=== PATIENT | male | born 1985 | race Caucasian/White ===

== ENCOUNTER 2017-09-27 16:47 | Emergency (ER) | payer MEDICAID ==
[2017-09-27 18:14] LABS: AMYLASE - SERUM 52 U/L (25-115); LIPASE 218 U/L (73-393); TROPONIN-I < 0.017 ng/mL (0.000-0.060)
[2017-09-27 18:52] LABS: BASOPHILS 0.6 % (0-2); EOSINOPHILS 1.7 % (0-7); HEMATOCRIT 44.5 % (42.0-54.0); HEMOGLOBIN 14.8 g/dL (13.5-17.5); IMMATURE GRANULOCYTES 0.7 % (0-5); LYMPHOCYTES 23.6 % (15-50); MCH 27.8 pg (26.0-34.0); MCHC 33.3 g/dL (31.0-37.0); MCV 83.5 fL (80.0-100.0); MEAN PLATELET VOLUME 10.2 fL (7.4-10.4); MONOCYTES 5.8 % (2-11); NEUTROPHILS 67.6 % (40-80); PLATELET COUNT 254 10x3/uL (130-400); RBC 5.33 10x6/uL (4.20-6.10); WBC 8.8 10x3/uL (4.8-10.8)
[2017-09-27 19:01] LABS: ALBUMIN 3.9 g/dL (3.4-5.0); ALKALINE PHOSPHATASE 75 U/L (46-116); ALT (SGPT) 223 U/L (10-68); CALC OSMOLALITY 279 mosm/kg (275-300); CALCIUM 9.2 mg/dL (8.5-10.1); CHLORIDE - SERUM 105 mmol/L (98-107); CREATININE - SERUM 0.9 mg/dL (0.6-1.3); GLUCOSE 138 mg/dL (74-106); POTASSIUM - SERUM 3.9 mmol/L (3.5-5.1); PROTEIN - SERUM 7.4 g/dL (6.4-8.2); SODIUM 141 mmol/L (136-145); UREA NITROGEN 5 mg/dL (7-18); eGFR NON AFRICAN AMERICAN > 90 mL/min (90-120)
[2017-09-27 19:11] LABS: CKMB 1.2 U/L (0.0-3.6); CREATINE KINASE 257 UL (21-232)
[2017-09-27 19:20] LABS: INR 0.89 (0.85-1.17); PROTIME 11.7 SECONDS (11.6-15.0)
[2017-09-27 19:21] LABS: APTT 35.8 SECONDS (22.8-39.4)
[2017-09-27 19:29] LABS: D-DIMER-QUANTITATIVE 0.35 ug/mLFEU (0.20-0.54)
== END 2017-09-27 20:04 | disposition home or self-care (01) ==
LOC: D.ER 16:47
PROVIDERS: Family Medicine
DX: R07.9 Chest pain, unspecified (principal)